=== PATIENT | male | born 1970 | race Caucasian/White ===

== ENCOUNTER 2018-08-30 16:36 | Inpatient (IN) ==
--- NOTE | 2018-08-30 18:39 | ED ---
HPI General Chief complaint: Psychiatric Symptoms Stated complaint: Psych Eval/VCSO Time Seen by Provider: 08/30/18 18:39 History of Present Illness HPI narrative: 47-year-old male with a history of bipolar disorder and diabetes is brought to the emergency department under Guerrero act for suicidal ideations. The patient states that he is homeless and has been feeling increasingly more depressed and hopeless about his situation. States that he wrote a letter to the bank and was going to rub them but decided not to do this instead and called a friend for help. States that his friend told him he needed to go see a psychiatrist so he went to [facility] and at that time they Guerrero acted him. The patient states that he has been contemplating walking out into traffic. He states he has not taken anything in attempt to harm himself. Denies alcohol or drug use. He has no physical complaints. Related Data Home Medications Medication Instructions Recorded Confirmed No Known Home Medications 08/30/18 08/30/18 Allergies Allergy/AdvReac Type Severity Reaction Status Date / Time No Known Allergies Allergy Verified 08/30/18 16:55 Review of Systems ROS: all other systems reviewed are negative [facility] Medical History Medical History Bipolar disorder (Acute) Diabetes (Acute) Surgical History Surgical History H/O hernia repair (Acute) History of facial surgery (Acute) History of foot surgery (Acute) Family History Family History Other Diabetes Social History Social History Substance History: No History of Abuse Second Hand Smoke Exposure: No Smoking Status: Never smoker How Often Do You Have a Drink Containing Alcohol: Never Recent Travel in [facility] within the Last 8 Weeks: Yes Recent Out of Country Travel within the Last 8 Weeks: No Immunization History Tetanus Immunization: <5 Years Tetanus Immunization Year if Known: 2017 Exam Narrative Exam Narrative: GENERAL: Well-nourished and well-developed pleasant patient in no acute distress who is nontoxic appearing. SKIN: Warm and dry. HEAD: Normocephalic and atraumatic. EYES: No injection, drainage, or hyphema noted. PERRLA. EOMI. ENT: No nasal drainage noted. Oropharynx is clear. NECK: Supple and the trachea is midline. CARDIOVASCULAR: Regular rate and rhythm. RESPIRATORY: Breath sounds are equal bilaterally with no accessory muscle use, wheezing, rhonchi, or crackles. GASTROINTESTINAL: Abdomen is soft, non-tender, and nondistended. MUSCULOSKELETAL: No obvious deformities, swelling, cyanosis, or ecchymosis is present throughout the upper and lower extremities. Patient has full range of motion without any signs of neurovascular compromise. Distal pulses are 2+ throughout. NEUROLOGICAL: Awake, alert, and oriented. Normal speech and gait. Cranial nerves are grossly intact. Course Initial Documented Vital Signs Temperature 98.3 F 08/30/18 16:55 Pulse Rate 117 H 08/30/18 16:55 Respiratory Rate 22 08/30/18 16:55 Blood Pressure 145/89 H 08/30/18 16:55 Pulse Oximetry 95 08/30/18 16:55 Last Documented Vital Signs Temperature 98.2 F 08/31/18 05:19 Pulse Rate 110 H 08/31/18 15:49 Respiratory Rate 18 08/31/18 15:49 Blood Pressure 120/78 08/31/18 15:49 Pulse Oximetry 99 08/31/18 15:49 Medical Decision Making [facility] Narrative Medical decision making narrative: Patient presents under a Guerrero act. Physical examination and vital signs are essentially unremarkable. Patient has no medical complaints to report. Psych screen has been ordered. If the laboratory results are unremarkable, the patient will be medically cleared for psychiatric evaluation and disposition. Medical Screen Exam Complete: Yes Emergency Medical Condition: Yes Differential Diagnosis Differential Diagnosis: Differential: Depression versus adjustment reaction versus anxiety versus PTSD versus psychosis NOS versus mood disorder NOS versus substance induced mood disorder versus ODD versus adjustment reaction versus schizophrenia versus bipolar disorder versus schizoaffective versus electrolyte abnormality versus dementia versus malingering. Lab Data Result diagrams: 08/30/18 14:58 08/30/18 14:58 Lab Results 08/30/18 08/30/18 08/30/18 Range/Units 14:58 14:58 14:58 WBC 8.2 (4.0-11.0) th/mm3 RBC 4.99 (4.50-5.90) mil/mm3 Hgb 14.2 (13.0-17.0) gm/dL Hct 42.2 (39.0-51.0) % MCV 84.6 (80.0-100.0) fL MCH 28.5 (27.0-34.0) pg MCHC 33.7 (32.0-36.0) % RDW 13.4 (11.6-17.2) % Plt Count 204 (150-450) th/mm3 MPV 7.1 (7.0-11.0) fL Neut % (Auto) 66.8 (16.0-70.0) % Lymph % (Auto) 25.1 (9.0-44.0) % [place] % (Auto) 5.9 (0.0-8.0) % Eos % (Auto) 1.5 (0.0-4.0) % Baso % (Auto) 0.7 (0.0-2.0) % Neut # (Auto) 5.4 (1.8-7.7) th/mm3 Lymph # (Auto) 2.0 (1.0-4.8) th/mm3 [place] # (Auto) 0.5 (0.0-0.9) th/mm3 Eos # (Auto) 0.1 (0.0-0.4) th/mm3 Baso # (Auto) 0.1 (0.0-0.2) th/mm3 WBC Differential . Differential Comment Auto diff final Sodium 136 (136-145) meq/L Potassium 3.7 (3.5-5.1) meq/L Chloride 101 (98-107) meq/L Carbon Dioxide 27.9 (21.0-32.0) meq/L Anion Gap 7 (5-15) meq/L BUN 8 (7-18) mg/dL Creatinine 0.92 (0.60-1.30) mg/dL Estimated GFR 87 L (>89) mL/min Random Glucose 224 H (74-106) mg/dL Hemoglobin A1c (4.3-6.0) % Calcium 8.7 (8.5-10.1) mg/dL Magnesium 1.8 (1.5-2.5) mg/dL Total Bilirubin 0.6 (0.2-1.0) mg/dL AST 13 L (15-37) U/L ALT 30 (12-78) U/L Alkaline Phosphatase 100 (45-117) U/L Total Protein 7.7 (6.4-8.2) g/dL Albumin 3.7 (3.4-5.0) g/dL Triglycerides 188 H (42-150) mg/dL Cholesterol 212 H (120-200) mg/dL LDL Cholesterol, Calc 131 H (0-99) mg/dL HDL Cholesterol 43.4 (40.0-60.0) mg/dL Cholesterol/HDL Ratio 4.88 Ratio TSH 1.540 (0.358-3.740) uIU/mL Urine Opiates Screen (Neg) Ur Barbiturates Screen (Neg) Ur Amphetamines Screen (Neg) U Benzodiazepines Scrn (Neg) Urine Cocaine Screen (Neg) U Cannabinoids Screen (Neg) Serum Alcohol Less than 3 (0-5) mg/dL 08/30/18 08/30/18 Range/Units 14:58 19:20 WBC (4.0-11.0) th/mm3 RBC (4.50-5.90) mil/mm3 Hgb (13.0-17.0) gm/dL Hct (39.0-51.0) % MCV (80.0-100.0) fL MCH (27.0-34.0) pg MCHC (32.0-36.0) % RDW (11.6-17.2) % Plt Count (150-450) th/mm3 MPV (7.0-11.0) fL Neut % (Auto) (16.0-70.0) % Lymph % (Auto) (9.0-44.0) % [place] % (Auto) (0.0-8.0) % Eos % (Auto) (0.0-4.0) % Baso % (Auto) (0.0-2.0) % Neut # (Auto) (1.8-7.7) th/mm3 Lymph # (Auto) (1.0-4.8) th/mm3 [place] # (Auto) (0.0-0.9) th/mm3 Eos # (Auto) (0.0-0.4) th/mm3 Baso # (Auto) (0.0-0.2) th/mm3 WBC Differential Differential Comment Sodium (136-145) meq/L Potassium (3.5-5.1) meq/L Chloride (98-107) meq/L Carbon Dioxide (21.0-32.0) meq/L Anion Gap (5-15) meq/L BUN (7-18) mg/dL Creatinine (0.60-1.30) mg/dL Estimated GFR (>89) mL/min Random Glucose (74-106) mg/dL Hemoglobin A1c 8.7 H (4.3-6.0) % Calcium (8.5-10.1) mg/dL Magnesium (1.5-2.5) mg/dL Total Bilirubin (0.2-1.0) mg/dL AST (15-37) U/L ALT (12-78) U/L Alkaline Phosphatase (45-117) U/L Total Protein (6.4-8.2) g/dL Albumin (3.4-5.0) g/dL Triglycerides (42-150) mg/dL Cholesterol (120-200) mg/dL LDL Cholesterol, Calc (0-99) mg/dL HDL Cholesterol (40.0-60.0) mg/dL Cholesterol/HDL Ratio Ratio TSH (0.358-3.740) uIU/mL Urine Opiates Screen Neg (Neg) Ur Barbiturates Screen Neg (Neg) Ur Amphetamines Screen Neg (Neg) U Benzodiazepines Scrn Neg (Neg) Urine Cocaine Screen Neg (Neg) U Cannabinoids Screen Neg (Neg) Serum Alcohol (0-5) mg/dL Discharge Plan Discharge Disposition Patient Disposition: ED Admit(ED Internal Use Only) Discharge Order Discharge Orders: ED Use Only Admit Order (Routine); Ordered 08/30/18 Ordered By: Chan Ely Discharge Details Diagnosis: Bipolar 1 disorder, depressed Physicians Team ED Provider: Larry De La Cruz ED Midlevel Provider: Ofelia Palomares Primary Care Provider: Primary Care Jane Bolanos Attending Provider: Garrett Salgado Other Providers: Carissa Callejas ; Utilizer,[facility] Service Discharge Interventions Interventions: Vital Signs Last Done: 08/30/18 20:16 ED Discharge Assessment Last Done: 08/30/18 22:04 Status ED Status: Left Department Discharge Information Discharge Date/Time: 08/30/18 22:15
[2018-08-30 19:14] LABS: Baso # (Auto) 0.1 th/mm3 (0.0-0.2); Baso % (Auto) 0.7 % (0.0-2.0); Eos # (Auto) 0.1 th/mm3 (0.0-0.4); Eos % (Auto) 1.5 % (0.0-4.0); Hematocrit 42.2 % (39.0-51.0); Hemoglobin 14.2 gm/dL (13.0-17.0); Lymph % (Auto) 25.1 % (9.0-44.0); Mean Corpuscular HGB Conc 33.7 % (32.0-36.0); Mean Corpuscular Hemoglobin 28.5 pg (27.0-34.0); Mean Corpuscular Volume 84.6 fL (80.0-100.0); Mean Platelet Volume 7.1 fL (7.0-11.0); Mono # (Auto) 0.5 th/mm3 (0.0-0.9); Mono % (Auto) 5.9 % (0.0-8.0); Neut # (Auto) 5.4 th/mm3 (1.8-7.7); Neut % (Auto) 66.8 % (16.0-70.0); Platelet Count 204 th/mm3 (150-450); Red Blood Count 4.99 mil/mm3 (4.50-5.90); Red Cell Distribution Width 13.4 % (11.6-17.2); White Blood Count 8.2 th/mm3 (4.0-11.0)
[2018-08-30 19:40] LABS: Anion Gap 7 meq/L (5-15)
[2018-08-30 19:49] LABS: Alanine Aminotransferase 30 U/L (12-78); Albumin 3.7 g/dL (3.4-5.0); Aspartate Aminotransferase 13 U/L (15-37); Blood Urea Nitrogen 8 mg/dL (7-18); Calcium 8.7 mg/dL (8.5-10.1); Carbon Dioxide 27.9 meq/L (21.0-32.0); Chloride 101 meq/L (98-107); Glomerular Filtration Rate 87 mL/min (>89); Glucose,Random 224 mg/dL (74-106); Magnesium 1.8 mg/dL (1.5-2.5); Potassium 3.7 meq/L (3.5-5.1); Sodium 136 meq/L (136-145)
[2018-08-30 19:51] LABS: Alkaline Phosphatase 100 U/L (45-117); Total Protein 7.7 g/dL (6.4-8.2)
[2018-08-30 20:02] LABS: Amphetamine Screen,Urine Neg (Neg); Barbiturate Screen,Urine Neg (Neg); Cannabinoid Screen,Urine Neg (Neg); Cocaine Screen,Urine Neg (Neg)
[2018-08-30 20:03] LABS: Opiate Screen,Urine Neg (Neg)
[2018-08-30 23:35] LABS: Chol/HDL Ratio 4.88 Ratio; HDL Cholesterol 43.4 mg/dL (40.0-60.0)
[2018-08-31] MEDS: ARIPiprazole 10 MG Tablet PO SCH (11:34)
[2018-08-31] MEDS ORDERED: Dextrose 50% in Water 50 ML Vial IV.PUSH PRN (11:56)
[2018-08-31] MEDS: Insulin NovoLOG Aspart Correctional Sugar Inj SQ SCH ×3 (12:42→20:38)
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
[2018-08-31 15:36] LABS: Hemoglobin A1c 8.7 % (4.3-6.0)
--- NOTE | 2018-08-31 18:13 | P.CONIM ---
History of Present Illness Service: Hospitalist Consult date: 08/31/18 Requesting Physician: Garrett Salgado Reason for Consult: Assist with medical management Primary Care Provider: No Primary Care Physician History of Present Illness: This is a 47-year-old homeless male with past medical history significant for diabetes and bipolar disorder who was admitted to inpatient psychiatry due to worsening depression and suicidal ideation. Hospitalist services have been consulted to assist with ongoing medical management. Patient seen and examined. Patient denies any acute medical complaints or concerns at this time. He denies any fever or chills. Denies any dizziness, lightheadedness, numbness, tingling or focal weakness. Denies any chest pain or shortness of breath. Denies any nausea, vomiting or abdominal pain. He denies any urinary difficulties. Denies any diarrhea or constipation. Patient states that his diabetes is managed by diet alone. Discussed with nursing staff, patient's last blood sugar was 289. Hemoglobin A1c is 8.7 Review of Systems Review of Systems: all other systems reviewed are negative PMFSH Medical History Medical History Bipolar disorder (Acute) Diabetes (Acute) Surgical History Surgical History H/O hernia repair (Acute) History of facial surgery (Acute) History of foot surgery (Acute) Family History Family History Other Diabetes Social History Social History Substance History: No History of Abuse Second Hand Smoke Exposure: No Smoking Status: Never smoker How Often Do You Have a Drink Containing Alcohol: Never Recent Travel in [place] within the Last 8 Weeks: Yes Recent Out of Country Travel within the Last 8 Weeks: No Immunization History Tetanus Immunization: <5 Years Tetanus Immunization Year if Known: 2016 Hx Influenza Vaccine This Season: Yes Medications and Allergies Allergies Allergy/AdvReac Type Severity Reaction Status Date / Time No Known Allergies Allergy Verified 08/30/18 16:55 Home Medications Medication Instructions Recorded Confirmed Type No Known Home Medications 08/30/18 08/30/18 History Active Medications: Active Medications Aripiprazole (Abilify) 10 mg PO DAILY [facility] Last Admin: 08/31/18 11:34 Dose: 10 mg Bupropion HCl (Wellbutrin Sr) 150 mg PO DAILY [facility] Dextrose (D50w Vial) 50 ml IV.PUSH UNSCH PRN PRN Reason: PER HYPOGLYCEMIA PROTOCOL Glucagon (Glucagon Inj) 1 mg OTHER PRN PRN PRN Reason: for Hypoglycemia Protocol Insulin Aspart (Novolog Insulin Correctional Sugar Inj) 0 unit SQ ACHS SUNNY; Protocol Last Admin: 08/31/18 16:23 Dose: 5 unit Trazodone HCl (Desyrel) 100 mg PO HS PRN PRN Reason: INSOMNIA Physical Exam Vital signs: Last Vital Signs Temp 98.2 F 08/31/18 05:19 Pulse 110 H 08/31/18 15:49 Resp 18 08/31/18 15:49 BP 120/78 08/31/18 15:49 Pulse Ox 99 08/31/18 15:49 Intake & Output 08/29/18 08/30/18 08/31/18 09/01/18 06:59 06:59 06:59 06:59 Weight 97.4 kg Narrative: GENERAL: WDWN male patient, INAD. Awake and alert. SKIN: Warm and dry. HEAD: Atraumatic. Asymmetrical facial features noted -patient with history of facial reconstruction secondary to facial injury from forcep use at EYES: Pupils equal and round. No scleral icterus. No injection or drainage. ENT: No nasal bleeding or discharge. Mucous membranes pink and moist. NECK: Trachea midline. CARDIOVASCULAR: Regular rate and rhythm. RESPIRATORY: No accessory muscle use. Clear to auscultation. Breath sounds equal bilaterally. GASTROINTESTINAL: Abdomen soft, non-tender, nondistended. Hepatic and splenic margins not palpable. MUSCULOSKELETAL: Extremities without clubbing, cyanosis, or edema. No obvious deformities. NEUROLOGICAL: Awake and alert. No obvious cranial nerve deficits. Motor grossly within normal limits. Able to move all extremities spontaneously. Normal speech. PSYCHIATRIC: Calm and cooperative. Results Labs CBC & Chem 7: 08/30/18 14:58 08/30/18 14:58 Assessment and Plan (1) Bipolar 1 disorder, depressed: Code(s): F31.9 - Bipolar disorder, unspecified Status: Acute Plan 47-year-old male with past medical history significant for diabetes type 2 and bipolar disorder admitted to inpatient psychiatry for worsening depression and suicidal ideation. Hospitalist service is consulted to assist with ongoing medical management. Bipolar disorder Depression Suicidal ideation UDS negative -Management per psychiatric team Diabetes, type II HgbA1c 8.7 -Change to diabetic diet -Metformin 500 mg twice daily -Accu-Cheks and insulin sliding scale DVT prophylaxis -Patient is ambulatory Thank you very kindly for this consultation. We will continue to follow patient along with you.
[2018-08-31] MEDS: traZODone 100 MG Tablet PO PRN (20:39)
[2018-09-01] MEDS: ARIPiprazole 10 MG Tablet PO SCH (08:00)
[2018-09-01] MEDS: Insulin NovoLOG Aspart Correctional Sugar Inj SQ SCH ×4 (08:00→21:58)
[2018-09-01] MEDS: buPROPion 150 MG 12 HR Tablet PO SCH (08:00)
--- NOTE | 2018-09-01 13:48 | P.PNPSY ---
Subjective Chief Complaint: Depression with suicidal ideations Remarks: Patient seen for follow-up, chart reviewed, patient discussed with nursing staff ; we reviewed the patient's mood, thoughts, and behaviors from overnight and this morning. Patient reports the patient slept well overnight he has been calm and cooperative with staff and other patients. He continues to express passive thoughts of suicide but contracts for safety in the hospital. He denies any auditory or visual hallucinations. Patient was seen at bedside after lunch. He denies having any complaints and reports satisfaction with current medications. The patient continues to express motivation for his recovery and discharged next week but he is certainly anxious and tentative about her discharge before the weekend. Review of Systems Constitutional: Reports body ache(s) Mental Status Examination Appearance: Appropriate Consciousness: Alert Orientation: x4 Motor Activity: Normal gait Speech: Unremarkable Language: Adequate Fund of Knowledge: Adequate Attention and Concentration: Adequate Memory: Unremarkable Mood: Sad Affect: Appropriate Thought Process & Associations: Intact Thought Content: Appropriate Hallucination Type: None Delusion Type: None Suicidal Ideation: Yes (Passive wish) Suicidal Plan: No Suicidal Intention: No Homicidal Ideation: No Homicidal Plan: No Homicidal Intention: No Insight: Fair Judgment: Impulsive Assessment and Plan - Assessment (1) Bipolar 1 disorder, depressed Code(s): F31.9 - Bipolar disorder, unspecified Status: Acute - Plan Plan: Initial treatment plan: 1. Continue with admission to inpatient psychiatry at [facility]; convert to voluntary/competent legal status. 2. Routine unit precautions. 3. Comfort medications ordered for as needed treatment of constipation, heartburn, diarrhea, and mild pain. 4. Hydroxyzine 50mg po q6H prn anxiety/insomnia. 5. Start Abilify 10 mg/day for treatment of bipolar disorder. 6. Restart Wellbutrin 150 mg XL 1/day for treatment of depression. 7. Start trazodone 50 mg at bedtime as needed for insomnia. 8. Patient will participate in the unit programming to include group therapies , milieu therapy and recreational therapies. 9. Discharge planning: Patient would like assistance finding placement in an [facility]. Patient currently has an income of over $800 per month. 10. Estimated LOS: [7] days 09/01/2018: Fair response to initial treatment plan, patient is reporting improved mood and hopefulness but he remains passively suicidal. Continue current inpatient observation and stabilization to further mitigate his risks of suicide. Continue Abilify 10 mg a day for treatment of bipolar disorder. Continue Wellbutrin 150 mg XL once per day for treatment of bipolar depression. Continue trazodone 50 mg at bedtime as needed for insomnia. Justification for Continued Inpatient Stay: The patient remains a high risk for suicide due to past suicide attempts, current depressive episode and passive SI.
--- NOTE | 2018-09-01 14:19 | P.PNIM ---
Subjective Interval history: Follow up on patient with DM. Patient seen and examined. Patient denies any acute medical complaints or concerns. We discussed his elevated HgbA1c and need to control his blood sugars better. Patient acknowledged agreement. Patient denies any fever, chills, dizziness, vision changes, palpitations, nausea, vomiting, abdominal pain, chest pain or shortness of breath. He says he has been eating and drinking his normal amount. Physical Exam Vital signs: Last Vital Signs Temp 98.2 F 09/01/18 05:52 Pulse 111 H 09/01/18 05:52 Resp 18 09/01/18 05:52 BP 123/68 09/01/18 05:52 Pulse Ox 96 09/01/18 05:52 Intake & Output 08/30/18 08/31/18 09/01/18 09/02/18 06:59 06:59 06:59 06:59 Weight 97.4 kg Narrative: GENERAL: WDWN male patient, INAD. Awake and alert. Encountered lying in his bed in his room. SKIN: Warm and dry. HEAD: Atraumatic. Asymmetrical facial features noted -patient with history of facial reconstruction secondary to facial injury from forcep use at EYES: Pupils equal and round. No scleral icterus. No injection or drainage. ENT: No nasal bleeding or discharge. Mucous membranes pink and moist. NECK: Trachea midline. CARDIOVASCULAR: Tachycardic. No murmur auscultated. RESPIRATORY: No accessory muscle use. Clear to auscultation. Breath sounds equal bilaterally. GASTROINTESTINAL: Abdomen soft, non-tender, nondistended. +BS. MUSCULOSKELETAL: Extremities without clubbing, cyanosis, or edema. No obvious deformities. NEUROLOGICAL: Awake and alert. No obvious cranial nerve deficits. Motor grossly within normal limits. Able to move all extremities spontaneously. Normal speech. PSYCHIATRIC: Calm and cooperative. Results Labs CBC & Chem 7: 08/30/18 14:58 08/30/18 14:58 Assessment and Plan (1) Bipolar 1 disorder, depressed: Code(s): F31.9 - Bipolar disorder, unspecified Status: Acute Plan 47-year-old male with past medical history significant for diabetes type 2 and bipolar disorder admitted to inpatient psychiatry for worsening depression and suicidal ideation. Hospitalist service is consulted to assist with ongoing medical management. Bipolar disorder Depression Suicidal ideation UDS negative -Management per psychiatric team Diabetes, type II HgbA1c 8.7 -Changed to diabetic diet, continue -08/31 started on Metformin 500 mg twice daily, continue. If no improvement in BS, will increase dose to 850mg BID. -Accu-Cheks and insulin sliding scale Tachycardia, possibly due to anxiety HR running low 100s No cardiac complaints TSH WNL -will obtain ECG for further evaluation DVT prophylaxis -Patient is ambulatory Progress Note: Quality VTE Deep Vein Thrombosis/Pulmonary Embolism Present on Admission: No
[2018-09-01] MEDS: traZODone 100 MG Tablet PO PRN (21:59)
[2018-09-02] MEDS: Insulin NovoLOG Aspart Correctional Sugar Inj SQ SCH ×4 (07:58→21:00)
[2018-09-02] MEDS: ARIPiprazole 10 MG Tablet PO SCH (08:00)
[2018-09-02] MEDS: buPROPion 150 MG 12 HR Tablet PO SCH (08:00)
--- NOTE | 2018-09-02 14:22 | P.PNIM ---
Subjective Interval history: Follow up on patient with DM. Patient folding clothes in day room. He does not voice any acute medical complaints or concerns. Physical Exam Vital signs: Last Vital Signs Temp 98.2 F 09/02/18 06:18 Pulse 100 H 09/02/18 06:18 Resp 17 09/02/18 06:18 BP 142/60 H 09/02/18 06:18 Pulse Ox 98 09/02/18 06:18 Intake & Output 08/31/18 09/01/18 09/02/18 09/03/18 06:59 06:59 06:59 06:59 Weight 97.4 kg Narrative: GENERAL: WDWN male patient, INAD. Awake and alert. SKIN: Warm and dry. HEAD: Atraumatic. Asymmetrical facial features noted -patient with history of facial reconstruction secondary to facial injury from forcep use at EYES: Pupils equal and round. No scleral icterus. No injection or drainage. ENT: No nasal bleeding or discharge. Mucous membranes pink and moist. NECK: Trachea midline. CARDIOVASCULAR: Tachycardic. No murmur auscultated. RESPIRATORY: No accessory muscle use. Clear to auscultation. Breath sounds equal bilaterally. GASTROINTESTINAL: Abdomen soft, non-tender, nondistended. +BS. MUSCULOSKELETAL: Extremities without clubbing, cyanosis, or edema. No obvious deformities. NEUROLOGICAL: Awake and alert. No obvious cranial nerve deficits. Motor grossly within normal limits. Able to move all extremities spontaneously. Normal speech. PSYCHIATRIC: Calm and cooperative. Results Labs CBC & Chem 7: 08/30/18 14:58 08/30/18 14:58 Assessment and Plan (1) Bipolar 1 disorder, depressed: Code(s): F31.9 - Bipolar disorder, unspecified Status: Acute Plan 47-year-old male with past medical history significant for diabetes type 2 and bipolar disorder admitted to inpatient psychiatry for worsening depression and suicidal ideation. Hospitalist service is consulted to assist with ongoing medical management. Bipolar disorder Depression Suicidal ideation UDS negative -Management per psychiatric team Diabetes, type II HgbA1c 8.7 -Changed to diabetic diet, continue -blood sugars not well controlled, will increase Metformin dose to 850mg BID. Patient is not good candidate for injectable insulin as outpatient due to being homeless -Accu-Cheks and insulin sliding scale Tachycardia, possibly due to anxiety HR running low 100s No cardiac complaints TSH WNL -ECG shows NSR DVT prophylaxis -Patient is ambulatory Progress Note: Quality VTE Deep Vein Thrombosis/Pulmonary Embolism Present on Admission: No
--- NOTE | 2018-09-02 14:44 | P.PNPSY ---
Subjective Chief Complaint: Depression with suicidal ideations Remarks: There is reports the patient slept 8 hours overnight and his interactions with staff and peers has been appropriate. Patient was seen at bedside after breakfast and he reports "I am hanging in there I am feeling better." The patient denies any passive suicidal ideations today and admits that his motivation and hopefulness have improved. He denies any auditory or visual hallucinations. Mental Status Examination Appearance: Appropriate Consciousness: Alert Orientation: x4 Motor Activity: Normal gait Speech: Unremarkable Language: Adequate Fund of Knowledge: Adequate Attention and Concentration: Adequate Memory: Unremarkable Mood: Sad Affect: Appropriate Thought Process & Associations: Intact Thought Content: Appropriate Hallucination Type: None Delusion Type: None Suicidal Ideation: No Suicidal Plan: No Suicidal Intention: No Homicidal Ideation: No Homicidal Plan: No Homicidal Intention: No Insight: Fair Judgment: Impulsive Assessment and Plan - Assessment (1) Bipolar 1 disorder, depressed Code(s): F31.9 - Bipolar disorder, unspecified Status: Acute - Plan Plan: Initial treatment plan: 1. Continue with admission to inpatient psychiatry at [facility]; convert to voluntary/competent legal status. 2. Routine unit precautions. 3. Comfort medications ordered for as needed treatment of constipation, heartburn, diarrhea, and mild pain. 4. Hydroxyzine 50mg po q6H prn anxiety/insomnia. 5. Start Abilify 10 mg/day for treatment of bipolar disorder. 6. Restart Wellbutrin 150 mg XL 1/day for treatment of depression. 7. Start trazodone 50 mg at bedtime as needed for insomnia. 8. Patient will participate in the unit programming to include group therapies , milieu therapy and recreational therapies. 9. Discharge planning: Patient would like assistance finding placement in an [facility]. Patient currently has an income of over $800 per month. 10. Estimated LOS: [7] days 09/01/2018: Fair response to initial treatment plan, patient is reporting improved mood and hopefulness but he remains passively suicidal. Continue current inpatient observation and stabilization to further mitigate his risks of suicide. Continue Abilify 10 mg a day for treatment of bipolar disorder. Continue Wellbutrin 150 mg XL once per day for treatment of bipolar depression. Continue trazodone 50 mg at bedtime as needed for insomnia. 09/02/2018: Good response to treatment, the patient's mood and motivation are improving and he is denying suicidal ideations for the first time since admission. Continue current inpatient observation and treatment plan as documented above with anticipated discharge early next week. Justification for Continued Inpatient Stay: Patient remains an elevated risk for self-harm and will require further inpatient stabilization and preparation of a safe discharge plan. Moving patient to a less restrictive environment at this time may result in decompensation.
[2018-09-02] MEDS: traZODone 100 MG Tablet PO PRN (20:51)
--- NOTE | 2018-09-03 01:11 | ECG ---
Date Performed: 09/01/2018 Time Performed: 18:36:45 PTAGE: 47 years EKG: Sinus rhythm NORMAL ECG PREVIOUS TRACING : 07/30/2009 08.32 Since the previous tracing, no significant change noted DOCTOR: Kameron Thurman Interpretating Date/Time 09/03/2018 01:10:49
[2018-09-03] MEDS: ARIPiprazole 10 MG Tablet PO SCH (08:59)
[2018-09-03] MEDS: buPROPion 150 MG 12 HR Tablet PO SCH (08:59)
[2018-09-03] MEDS: Insulin NovoLOG Aspart Correctional Sugar Inj SQ SCH ×4 (08:59→20:07)
--- NOTE | 2018-09-03 12:11 | P.PNPSY ---
Subjective Chief Complaint: Depression with suicidal ideations Remarks: Reviewed electronic medical record and discussed with nursing staff. Rounded with GEORGE [place]. Patient in day room finishing lunch. He states, " I am doing better, I need to be discharged." Tolerating medication well. Sleeping and eating. Preoccupied with discharge. Nursing endorses no problems with patients , cooperative and interacting with others. Denies SI/HI. States that his mood is better. Review of Systems All other systems reviewed negative except as stated in HPI Mental Status Examination Appearance: Appropriate Consciousness: Alert Orientation: x4 Motor Activity: Normal gait Speech: Unremarkable Language: Adequate Fund of Knowledge: Adequate Attention and Concentration: Adequate Memory: Unremarkable Mood: Appropriate Affect: Appropriate Thought Process & Associations: Intact Thought Content: Appropriate Hallucination Type: None Delusion Type: None Suicidal Ideation: No Suicidal Plan: No Suicidal Intention: No Homicidal Ideation: No Homicidal Plan: No Homicidal Intention: No Insight: Fair Judgment: Impulsive Assessment and Plan - Assessment (1) Bipolar 1 disorder, depressed Code(s): F31.9 - Bipolar disorder, unspecified Status: Acute - Plan Plan: 09/03/18 continue current treatment plan. 09/02/18 Initial treatment plan: 1. Continue with admission to inpatient psychiatry at [facility]; convert to voluntary/competent legal status. 2. Routine unit precautions. 3. Comfort medications ordered for as needed treatment of constipation, heartburn, diarrhea, and mild pain. 4. Hydroxyzine 50mg po q6H prn anxiety/insomnia. 5. Start Abilify 10 mg/day for treatment of bipolar disorder. 6. Restart Wellbutrin 150 mg XL 1/day for treatment of depression. 7. Start trazodone 50 mg at bedtime as needed for insomnia. 8. Patient will participate in the unit programming to include group therapies , milieu therapy and recreational therapies. 9. Discharge planning: Patient would like assistance finding placement in an [facility]. Patient currently has an income of over $800 per month. 10. Estimated LOS: [7] days 09/01/2018: Fair response to initial treatment plan, patient is reporting improved mood and hopefulness but he remains passively suicidal. Continue current inpatient observation and stabilization to further mitigate his risks of suicide. Continue Abilify 10 mg a day for treatment of bipolar disorder. Continue Wellbutrin 150 mg XL once per day for treatment of bipolar depression. Continue trazodone 50 mg at bedtime as needed for insomnia. 09/02/2018: Good response to treatment, the patient's mood and motivation are improving and he is denying suicidal ideations for the first time since admission. Continue current inpatient observation and treatment plan as documented above with anticipated discharge early next week. Justification for Continued Inpatient Stay: Moving patient to a less restrictive environment may result in his decompensation.
--- NOTE | 2018-09-03 13:10 | P.PNIM ---
Subjective Interval history: Follow up on patient with DM. Patient ablating around the unit. He does not endorse any acute medical complaints or concerns. Blood sugars much better controlled. Discussed with nursing staff, no acute events noted. Physical Exam Vital signs: Last Vital Signs Temp 98 F 09/03/18 06:00 Pulse 100 H 09/03/18 06:00 Resp 17 09/03/18 06:00 BP 116/69 09/03/18 06:00 Pulse Ox 97 09/03/18 06:00 Narrative: GENERAL: WDWN male patient, INAD. Awake and alert. Ambulate around the unit without any difficulties. SKIN: Warm and dry. HEAD: Atraumatic. Asymmetrical facial features noted -patient with history of facial reconstruction secondary to facial injury from forcep use at EYES: Pupils equal and round. No scleral icterus. No injection or drainage. ENT: No nasal bleeding or discharge. Mucous membranes pink and moist. NECK: Trachea midline. CARDIOVASCULAR: Tachycardic. No murmur auscultated. RESPIRATORY: No accessory muscle use. Clear to auscultation. Breath sounds equal bilaterally. GASTROINTESTINAL: Abdomen soft, non-tender, nondistended. +BS. MUSCULOSKELETAL: Extremities without clubbing, cyanosis, or edema. No obvious deformities. NEUROLOGICAL: Awake and alert. No obvious cranial nerve deficits. Motor grossly within normal limits. Able to move all extremities spontaneously. Normal speech. PSYCHIATRIC: Calm and cooperative. Results Labs CBC & Chem 7: 08/30/18 14:58 08/30/18 14:58 Assessment and Plan (1) Bipolar 1 disorder, depressed: Code(s): F31.9 - Bipolar disorder, unspecified Status: Acute Plan 47-year-old male with past medical history significant for diabetes type 2 and bipolar disorder admitted to inpatient psychiatry for worsening depression and suicidal ideation. Hospitalist service is consulted to assist with ongoing medical management. Bipolar disorder Depression Suicidal ideation UDS negative -Management per psychiatric team Diabetes, type II HgbA1c 8.7 -Changed to diabetic diet, continue -blood sugars improved on increased dose of metformin. Continue on metformin 850 mg p.o. twice daily. Continue monitoring with Accu-Cheks for the next 24- 48 hours, if blood sugars remain stable may discontinue blood sugar monitoring. -Accu-Cheks and insulin sliding scale Tachycardia, possibly due to anxiety HR running low 100s No cardiac complaints TSH WNL -ECG shows NSR DVT prophylaxis -Patient is ambulatory Patient appears stable from hospitalist standpoint. [facility] will sign off. Please reconsult if needed. Progress Note: Quality VTE Deep Vein Thrombosis/Pulmonary Embolism Present on Admission: No
[2018-09-03] MEDS: traZODone 100 MG Tablet PO PRN (20:11)
[2018-09-04] MEDS: Insulin NovoLOG Aspart Correctional Sugar Inj SQ SCH ×4 (07:21→20:38)
[2018-09-04] MEDS: ARIPiprazole 10 MG Tablet PO SCH (08:15)
[2018-09-04] MEDS: buPROPion 150 MG 12 HR Tablet PO SCH (08:15)
--- NOTE | 2018-09-04 14:30 | P.PNPSY ---
Subjective Chief Complaint: Depression with suicidal ideations Remarks: Patient seen for follow-up, chart reviewed, patient discussed with nursing staff ; we reviewed the patient's mood, thoughts, and behaviors from overnight and this morning. Nurse reports the patient remains calm and cooperative and appropriate within the milieu. He denies any auditory or visual hallucinations and he denies any homicidal or suicidal ideations. The patient was seen sitting in the dayroom after breakfast. He was kind and pleasant with his attitude towards the provider. He reports feeling more hopeful and less depressed since start of treatment. He does complain of early awakenings at night and he agrees with an increase to his trazodone. The patient reports that he feels ready for discharge if there is an [facility] or a supportive living environment where he can go to. The patient continues to work with social workers on finding a safe discharge plan. Review of Systems All other systems reviewed negative except as stated in HPI Mental Status Examination Appearance: Appropriate Consciousness: Alert Orientation: x4 Motor Activity: Normal gait Speech: Unremarkable Language: Adequate Fund of Knowledge: Adequate Attention and Concentration: Adequate Memory: Unremarkable Mood: Appropriate Affect: Appropriate Thought Process & Associations: Intact Thought Content: Appropriate Hallucination Type: None Delusion Type: None Suicidal Ideation: No Suicidal Plan: No Suicidal Intention: No Homicidal Ideation: No Homicidal Plan: No Homicidal Intention: No Insight: Fair Judgment: Impulsive Assessment and Plan - Assessment (1) Bipolar 1 disorder, depressed Code(s): F31.9 - Bipolar disorder, unspecified Status: Acute - Plan Plan: 09/03/18 continue current treatment plan. 09/02/18 Initial treatment plan: 1. Continue with admission to inpatient psychiatry at [facility]; convert to voluntary/competent legal status. 2. Routine unit precautions. 3. Comfort medications ordered for as needed treatment of constipation, heartburn, diarrhea, and mild pain. 4. Hydroxyzine 50mg po q6H prn anxiety/insomnia. 5. Start Abilify 10 mg/day for treatment of bipolar disorder. 6. Restart Wellbutrin 150 mg XL 1/day for treatment of depression. 7. Start trazodone 50 mg at bedtime as needed for insomnia. 8. Patient will participate in the unit programming to include group therapies , milieu therapy and recreational therapies. 9. Discharge planning: Patient would like assistance finding placement in an [facility]. Patient currently has an income of over $800 per month. 10. Estimated LOS: [7] days 09/01/2018: Fair response to initial treatment plan, patient is reporting improved mood and hopefulness but he remains passively suicidal. Continue current inpatient observation and stabilization to further mitigate his risks of suicide. Continue Abilify 10 mg a day for treatment of bipolar disorder. Continue Wellbutrin 150 mg XL once per day for treatment of bipolar depression. Continue trazodone 50 mg at bedtime as needed for insomnia. 09/02/2018: Good response to treatment, the patient's mood and motivation are improving and he is denying suicidal ideations for the first time since admission. Continue current inpatient observation and treatment plan as documented above with anticipated discharge early next week. 09/04/2018: 09/02/2018: Good response to treatment, the patient's mood and motivation are improving and he is denying suicidal ideations for the first time since admission. Continue current inpatient observation and treatment plan as documented above with anticipated discharge this week. Justification for Continued Inpatient Stay: Patient remains an elevated risk for self-harm by self neglect and will require further inpatient stabilization and preparation of a safe discharge plan. Moving patient to a less restrictive environment at this time may result in decompensation.
[2018-09-04] MEDS: traZODone 100 MG Tablet PO PRN (20:32)
[2018-09-05] MEDS: ARIPiprazole 10 MG Tablet PO SCH (08:52)
[2018-09-05] MEDS: buPROPion 150 MG 12 HR Tablet PO SCH (08:52)
--- NOTE | 2018-09-05 10:36 | P.PNPSY ---
Subjective Chief Complaint: Depression with suicidal ideations Remarks: Patient seen for follow-up, chart reviewed, patient discussed with nursing staff ; we reviewed the patient's mood, thoughts, and behaviors from overnight and this morning. Nurse reports that the patient has slept 8 hours overnight and he remains calm and cooperative and pleasant with staff and other patients. Patient was seen at bedside after breakfast where he was awake and reading. The patient reports that he is indeed excited because he was accepted to [facility] with a discharge plan for tomorrow. He expressed satisfaction with his current medications denies side effects. He denies any suicidal or homicidal ideations Review of Systems All other systems reviewed negative except as stated in HPI Mental Status Examination Appearance: Appropriate Consciousness: Alert Orientation: x4 Motor Activity: Normal gait Speech: Unremarkable Language: Adequate Fund of Knowledge: Adequate Attention and Concentration: Adequate Memory: Unremarkable Mood: Appropriate Affect: Appropriate Thought Process & Associations: Intact Thought Content: Appropriate Hallucination Type: None Delusion Type: None Suicidal Ideation: No Suicidal Plan: No Suicidal Intention: No Homicidal Ideation: No Homicidal Plan: No Homicidal Intention: No Insight: Fair Judgment: Impulsive Assessment and Plan - Assessment (1) Bipolar 1 disorder, depressed Code(s): F31.9 - Bipolar disorder, unspecified Status: Acute - Plan Plan: 09/03/18 continue current treatment plan. 09/02/18 Initial treatment plan: 1. Continue with admission to inpatient psychiatry at [facility]; convert to voluntary/competent legal status. 2. Routine unit precautions. 3. Comfort medications ordered for as needed treatment of constipation, heartburn, diarrhea, and mild pain. 4. Hydroxyzine 50mg po q6H prn anxiety/insomnia. 5. Start Abilify 10 mg/day for treatment of bipolar disorder. 6. Restart Wellbutrin 150 mg XL 1/day for treatment of depression. 7. Start trazodone 50 mg at bedtime as needed for insomnia. 8. Patient will participate in the unit programming to include group therapies , milieu therapy and recreational therapies. 9. Discharge planning: Patient would like assistance finding placement in an [facility]. Patient currently has an income of over $800 per month. 10. Estimated LOS: [7] days 09/01/2018: Fair response to initial treatment plan, patient is reporting improved mood and hopefulness but he remains passively suicidal. Continue current inpatient observation and stabilization to further mitigate his risks of suicide. Continue Abilify 10 mg a day for treatment of bipolar disorder. Continue Wellbutrin 150 mg XL once per day for treatment of bipolar depression. Continue trazodone 50 mg at bedtime as needed for insomnia. 09/02/2018: Good response to treatment, the patient's mood and motivation are improving and he is denying suicidal ideations for the first time since admission. Continue current inpatient observation and treatment plan as documented above with anticipated discharge early next week. 09/04/2018: Good response to treatment, the patient's mood and motivation are improving and he is denying suicidal ideations for the first time since admission. Continue current inpatient observation and treatment plan as documented above with anticipated discharge this week. 09/05/2018: Good response to treatment, the patient's mood and motivation are improved and stable and he is denying suicidal ideations. The patient has been accepted to a local [facility] and he is agreeable with this discharge plan. Anticipate discharge tomorrow morning. Justification for Continued Inpatient Stay: Patient remains an elevated risk for self-harm by self neglect and will require further inpatient stabilization and preparation of a safe discharge plan. Moving patient to a less restrictive environment at this time may result in decompensation.
[2018-09-05] MEDS: Insulin NovoLOG Aspart Correctional Sugar Inj SQ SCH ×5 (11:37→20:19)
[2018-09-05] MEDS: traZODone 100 MG Tablet PO PRN (20:20)
[2018-09-06] MEDS: Insulin NovoLOG Aspart Correctional Sugar Inj SQ SCH (08:03)
[2018-09-06] MEDS: buPROPion 150 MG 12 HR Tablet PO SCH (08:04)
[2018-09-06] MEDS: ARIPiprazole 10 MG Tablet PO SCH (08:04)
--- NOTE | 2018-09-06 10:40 | XR ---
EXAM DATE: 09/06/2018 10:37 AM EST AGE/SEX: 47 years / Male INDICATIONS: . Rule out TB infection. CLINICAL DATA: This is the patient's initial encounter. Patient reports that signs and symptoms have been present for 1 day and indicates a pain score of 0/10. MEDICAL/SURGICAL HISTORY: None. None. COMPARISON: [facility], CHEST PA & LAT, 05/02/2013. . FINDINGS: AP and lateral views of the chest demonstrate the lungs to be symmetrically aerated without evidence of mass, infiltrate or effusion. The cardiomediastinal contours are unremarkable. Osseous structure s are intact. No significant change compared to 2012. CONCLUSION: No new or acute intrathoracic disease. Stable examination of the chest. No evidence to suggest TB. Electronically signed by: Christian Servin MD Board Certified Radiologist 09/06/2018 10:39 AM EST
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
== END 2018-09-06 12:30 ==
LOC: NEPJ 16:36 → NEDA 21:39 → H270 22:15
PROVIDERS: ADMIT Psychiatry & Neurology Psychiatry; ATTEND Psychiatry & Neurology Psychiatry